=== PATIENT | female | born 1990 | race Caucasian/White ===

== ENCOUNTER 2022-06-13 06:33 | Inpatient (IN) | payer OTHER, SELFPAY ==
[2022-06-13] VITALS (54 sets, daily range): BP systolic 107–156; BP diastolic 57–102; PULSE 79–180; TEMP 36.6–37.6; O2SAT 80–100; BMI 29.3
[2022-06-13] MEDS: Lactated Ringers 1,000 ML 50 ML IV (06:45)
[2022-06-13 06:59] LABS: Absolute Lymphocyte Count 1.61 X10^3/uL (0.83-4.51); Absolute Neutrophil Count 8.2 X10^3/uL (2.0-7.7); Basophil# 0.06 X10^3/uL; Basophil% 0.5 % (0-1); Eosinophil# 0.11 X10^3/uL; Hematocrit 34.3 % (37-47); Hemoglobin 11.6 g/dL (12.0-15.0); Lymphocyte # 1.61 X10^3/ul (0.83-4.51); Lymphocyte % 14.5 % (19-41); Mean Corp Hgb Conc 33.8 g/dL (32-36); Mean Corpuscular Hgb 30.4 pg (27.0-32.0); Mean Platelet Vol. 10.5 fl (6.2-12.0); Monocyte# 1.07 X10^3/uL; Monocyte% 9.6 % (0-10); NRBC Flagged by Analyzer 0 % (0-5); Neutrophil # 8.16 X10^3/uL (2.7-7.7); Neutrophil % 73.6 % (47-70); Platelet Count 241 K/mm3 (150-450); RBC Distribution Width CV 13.5 % (11.6-14.6); RBC Distribution Width SD 44.3 fl (35.1-43.9); Red Blood Count 3.81 M/mm3 (4.2-5.4); White Blood Count 11.1 K/mm3 (4.4-11.0)
[2022-06-13 07:35] LABS: Bedside Glucose 104 mg/dL (74-106)
[2022-06-13] MEDS: Oxytocin 15 Units/NS 250ml 15 UNITS/250 ML IV.SOLN 2 UNITS IV (07:48)
--- NOTE | 2022-06-13 09:06 | HP.PCM.OB_ITS ---
HPI - General General Date of Admission: 06/13/22 Date of Service: 06/13/22 HPI Narrative DIEGO LAWRENCE, is a 31 F who presents with SROM. Maternal Data Information Final ABDIFATAH: 06/25/22 Gestational age: 38&2 PFSH [facility] Medical History (Updated 06/13/22 @ 09:[address] Quinten Layne MD) Anemia Gestational diabetes IBS (irritable bowel syndrome) Infertility Uterine anomaly Home Medications PNV 153-FA 400 mcg-om3 35 mg-dha 25 mg-epa 5 mg-fish oil chew tablet ( Gummies) 2 tab PO DAILY 06/13/22 [History Last Taken 06/13/22 05:00] famotidine 20 mg tablet (Pepcid) 20 mg PO DAILY acid reflux 06/13/22 [History Last Taken 06/12/22 20:00] ferrous sulfate 142 mg (45 mg iron) tablet,extended release (Slow Fe) 142 mg PO DAILY anemia 06/13/22 [History Last Taken 06/13/22 04:00] Allergy/AdvReac Type Severity Reaction Status Date / Time hydrocodone Allergy Intermediate Vomiting Verified 06/13/22 06:49 tree nut [tree nuts] Allergy Hives Verified 06/13/22 06:49 Social History Smoking Status: Never smoker History Elective abortions Hx Para 0 Spontaneous abortions Hx # Term Pregnancies Ectopic pregnancies Hx # Pregnancies Multiple births # of living children NST FHR Rate Baby A Baseline: 135 Variability:: Moderate Accelerations:: 15 x 15 Decelerations:: None Uterine Activity:: Irregular Vital Signs Vital Signs Vital Signs: 06/13/22 06:21 06/13/22 06:21 06/13/22 06:21 Temperature Temperature Source Temporal Pulse Rate 116 H Blood Pressure 130/78 H BP Systolic 130 BP Diastolic 78 Pulse Ox 06/13/22 06:21 06/13/22 07:20 06/13/22 07:20 Temperature 98.0 F Temperature Source Pulse Rate 95 Blood Pressure 132/81 H BP Systolic 132 BP Diastolic 81 Pulse Ox 06/13/22 07:25 06/13/22 07:25 06/13/22 08:57 Temperature 99.1 F Temperature Source Pulse Rate Blood Pressure 124/82 H BP Systolic 124 BP Diastolic 82 Pulse Ox 98 06/13/22 08:57 06/13/22 08:56 06/13/22 08:56 Temperature 98.5 F Temperature Source Temporal Pulse Rate 96 Blood Pressure BP Systolic BP Diastolic Pulse Ox Weight Weight: 160 lb 9.6 oz Body Mass Index (BMI) 29.3 Physical Exam Const alert and oriented x3 Chest inspection of chest normal GI soft to palpation, non-tender and non-distended Inspection: gravid external exam normal Narrative: /3 Labs Labs Labs: Blood Type A POSITIVE Antibody Screen NEGATIVE Hct 34.3 % (37-47) L Hgb 11.6 g/dL (12.0-15.0) L See [facility] H&P Assessment & Plan (1) SROM (spontaneous rupture of membranes): COMMENT: @ 38&2 (2) Gestational diabetes, diet controlled: (3) Anemia affecting : PLAN: Plan Admit to L&D Augment with pitocin GBS negative EFW - less thatn 4500g, patient with adequate pelvis Pain - epidural as desired Routine care
[2022-06-13 09:20] LABS: Bedside Glucose 98 mg/dL (74-106)
[2022-06-13] MEDS: LACTATED RINGERS 500 ML 999 ML IV ×2 (11:18→19:28)
[2022-06-13] MEDS: fentaNYL-bupivacaine (epidural) 100 ML BAG EPIDURAL (12:08)
[2022-06-13 12:50] LABS: Bedside Glucose 81 mg/dL (74-106)
[2022-06-13] MEDS: Lactated Ringers 1,000 ML 200 ML IV (16:01)
[2022-06-13 16:26] LABS: Bedside Glucose 81 mg/dL (74-106)
[2022-06-13] MEDS: Amnioinfusion- 0.9% NS 1,000 ML IV.SOLN. INTRA-UTER (16:30)
[2022-06-13 18:25] LABS: Bedside Glucose 79 mg/dL (74-106)
[2022-06-13] MEDS: Mag Hydrox/Al Hydrox/Simeth 30 ML UDC PO (19:10)
--- NOTE | 2022-06-13 19:54 | PN.OBGYN_ITS ---
Subjective Subjective Patient comfortable with epidural Objective Data Objective Data Vital Signs: Vital Signs Temp Pulse BP Pulse Ox 98.6 F 93 127/60 H 99 06/13/22 19:29 06/13/22 19:29 06/13/22 19:29 06/13/22 19:28 Weight: 160 lb 9.6 oz Body Mass Index (BMI) 29.3 Intake & Output: Intake and Output for Last 24 Hours 06/11/22 06/12/22 06/13/22 23:59 23:59 23:59 Intake Total 4358.70 / 4358.70 Output Total 2150 / 2150 Balance 2208.70 / 2208.70 Lab / Micro Data Result Diagrams: 06/13/22 06:45 Labs: Laboratory Results - last 24 hr 06/13/22 06:43: POC Glucose 104 06/13/22 06:45: WBC 11.1 H, RBC 3.81 L, Hgb 11.6 L, Hct 34.3 L, MCV 90.0, MCH 30.4, MCHC 33.8, RDW Std Deviation 44.3 H, RDW Coeff of Lissette 13.5, Plt Count 241, MPV 10.5, Immature Gran % (Auto) 0.800, Neut % (Auto) 73.6 H, Lymph % (Auto) 14.5 L, [place] % (Auto) 9.6, Eos % (Auto) 1.0, Baso % (Auto) 0.5, Absolute Neuts (auto) 8.2 H, Absolute Lymphs (auto) 1.61, Nucleated RBC % 0 06/13/22 07:05: Blood Type A POSITIVE, Antibody Screen NEGATIVE 06/13/22 08:02: POC Glucose 98 06/13/22 12:02: POC Glucose 81 06/13/22 15:57: POC Glucose 81 06/13/22 17:30: POC Glucose 79 Physical Exam Narrative: cvx - 6/80/-1 NST FHR Rate Baby A Baseline: 140 Variability:: Moderate Accelerations:: 15 x 15 Decelerations:: Late (occasional) Uterine Activity:: Q 2-3 minutes Assessment & Plan (1) SROM (spontaneous rupture of membranes): COMMENT: @ 38&2 PLAN: Plan Decrease pitocin to 4 and change patient's position to resolve late appearing decelerations. monitoring remains overall reassuring.
[2022-06-13 20:36] LABS: Bedside Glucose 86 mg/dL (74-106)
--- NOTE | 2022-06-13 21:20 | EX.PCM.OBRPT ---
Maternal Data Information Final ABDIFATAH: 06/25/22 Gestational age: 38&2 Vaginal Delivery Maternal Presentation Maternal Presentation: Spontaneous Rupture of Membranes Type of Induction: Pitocin Operative Information Date of Procedure: 06/13/22 Pre-Operative Diagnosis: (1) Spontaneous rupture of membranes (2) Gestational diabetes - diet controlled Post-Operative Diagnosis: Same Surgery / Procedure Performed: Spontaneous Vaginal Delivery Type of Anesthesia: Epidural Estimated Blood Loss: 400ml Findings Description of Procedure: Patient prepped & draped when C/C/+2. She pushed well to deliver the head. head gently guided to allow delivery of anterior and posterior shoulders. No excess traction placed on head. Body delivered and 3VC clamped & cut in delayed fashion. Placenta delivered with gentle traction and good uterine tone obtained. Presentation: JOHN Amniotic Membrane Rupture Type: Spontaneous Amniotic Fluid Description: Moderate meconium Placental Delivery Description: Expressed Placenta Disposition: [facility] Specimen(s) Removed: Placenta Cord Vessel Description: 3 Vessels Cord Entanglement: None A Gender: Male (1 minute): 8 (5 minute): 9 Delayed Cord Clamping: Yes Post Vaginal Delivery Medications Given After Delivery: IV Pitocin Episiotomy Description: None Laceration: 1st degree (perineal - repaired with 3-0 vicryl) Complication Complications: None
[2022-06-13 21:31] LABS: Bedside Glucose 85 mg/dL (74-106)
[2022-06-13 22:30] LABS: Bedside Glucose 105 mg/dL (74-106)
[2022-06-13 23:51] LABS: Bedside Glucose 114 mg/dL (74-106)
[2022-06-14] VITALS (27 sets, daily range): BP systolic 104–123; BP diastolic 56–77; PULSE 91–133; RESP 16–18; TEMP 36.7–37.2; O2SAT 97–98
[2022-06-14 06:15] LABS: Bedside Glucose 100 mg/dL (74-106)
--- NOTE | 2022-06-14 16:41 | PCM.PN.OB ---
Subjective Subjective Denies complaints Objective Data Objective Data Vital Signs: Vital Signs Temp Pulse Resp BP Pulse Ox O2 Del Method 98.2 F 94 16 114/74 98 Room Air 06/14/22 12:10 06/14/22 12:10 06/14/22 12:10 06/14/22 12:10 06/14/22 01:43 06/14/22 04:01 Oxygen Delivery Method Room Air Weight: 160 lb 9.6 oz Body Mass Index (BMI) 29.3 Intake & Output: Intake and Output for Last 24 Hours 06/12/22 06/13/22 06/14/22 23:59 23:59 23:59 Intake Total 4745.63 / 4745.63 644.37 / 644.37 Output Total 2150 / 2150 500 / 500 Balance 2595.63 / 2595.63 144.37 / 144.37 Lab / Micro Data Result Diagrams: 06/13/22 06:45 Labs: Laboratory Results - last 24 hr 06/13/22 17:30: POC Glucose 79 06/13/22 20:14: POC Glucose 86 06/13/22 21:11: POC Glucose 85 06/13/22 22:09: POC Glucose 105 06/13/22 23:30: POC Glucose 114 H 06/14/22 05:48: POC Glucose 100 Physical Exam Const alert, oriented x3 and no apparent distress HEENT normocephalic GI soft to palpation, non-tender and non-distended GI Narrative: fundus firm, mid & below umbilicus Extremity normal to inspection and no calf tenderness Assessment & Plan (1) Gestational diabetes, diet controlled: COMMENT: PPD#1 PLAN: Routine PP care FBS this am normal. Plan for PP DM screening.
[2022-06-15 02:00] VITALS: BP 104/67; PULSE 92; RESP 16; TEMP 35.9
[2022-06-15 08:18] VITALS: BP 110/68; PULSE 96; RESP 16; TEMP 36.7
--- NOTE | 2022-06-15 10:08 | DCINST_ITS ---
Discharge Instructions Diet Discharge Diet: No restrictions Activity Discharge Activity: May Shower May resume sexual activity in: 6 weeks Weight Bearing Status: Weight bearing as tolerated Dressing / Incision Call your doctor if you observe: Fever of 101 or Higher, Coldness, Increased Pain, Change in Color, Inability to urinate, Inability to have a bowel movement, Using more than 1 pad per hour, Shortness of breath, Dizziness, Fainting spells, Chest pain, Increased palpitations (irregular heartbeat), Calf discomfort and Uncontrolled pain Follow Up Care Please Follow Up With: Quinten Layne MD When: Follow up in 2 and 6 weeks for visits. Test Results: Test results from this visit will be discussed in further detail at your follow- up appointment, if applicable. Discharge Plan Admission Admit Date/Time: 06/13/22 06:33 Primary Reason for Your Visit: Vaginal delivery Attending Provider: Quinten Layne Primary Care Provider: Danielle Kirk Primary Discharge Orders/Prescriptions Prescriptions: New acetaminophen 500 mg Tablet 1,000 mg PO Q6H PRN PRN (Reason: Pain 1-10 Or Fever) Qty: 0 0RF ibuprofen 600 mg Tablet 600 mg PO Q6H PRN PRN (Reason: Pain Score 1-3) Qty: 0 0RF Continued famotidine [Pepcid] 20 mg Tablet 20 mg PO DAILY Slow Fe 142 mg (45 mg iron) Tablet Extended Release 142 mg PO DAILY Gummies 400 mcg-35 mg- 25 mg-5 mg Tablet,Chewable 2 tab PO DAILY Referrals / Follow Up: Care Physician,No Primary [Primary Care Provider] - Disposition Disposition (needs filled in before D/C Order can be placed): Home, Self Care
--- NOTE | 2022-06-15 10:10 | PCM.PN.OB ---
Subjective Subjective NO complaints Objective Data Objective Data Vital Signs: Vital Signs Temp Pulse Resp BP Pulse Ox O2 Del Method 98.1 F 96 16 110/68 98 Room Air 06/15/22 08:18 06/15/22 08:18 06/15/22 08:18 06/15/22 08:18 06/14/22 01:43 06/15/22 08:18 Oxygen Delivery Method Room Air Weight: 160 lb 9.6 oz Body Mass Index (BMI) 29.3 Intake & Output: Intake and Output for Last 24 Hours 06/13/22 06/14/22 06/15/22 23:59 23:59 23:59 Intake Total 4745.63 / 4745.63 644.37 / 644.37 Output Total 2150 / 2150 800 / 800 Balance 2595.63 / 2595.63 -155.63 / -155.63 Lab / Micro Data Result Diagrams: 06/13/22 06:45 Physical Exam Const alert, oriented x3 and no apparent distress HEENT normocephalic GI soft to palpation, non-tender and non-distended GI Narrative: fundus firm, mid & below umbilicus Extremity normal to inspection and no calf tenderness Assessment & Plan (1) Gestational diabetes, diet controlled: COMMENT: PPD#2 PLAN: D/c to home
== END 2022-06-15 11:00 | disposition home or self-care (01) | DRG 807 ==
LOC: WPOUT 06:35 → WP 07:21
PROVIDERS: Admitting Provider Advanced Practice Midwife; Visit Provider Obstetrics & Gynecology
DX: O24.420 Gestational diabetes mellitus in childbirth, diet controlled (principal); Z37.0 Single live birth; D64.9 Anemia, unspecified; O76 Abnormality in fetal heart rate and rhythm complicating labor and delivery; Z3A.38 38 weeks gestation of pregnancy; O99.02 Anemia complicating childbirth
CPT/HCPCS: 59025; 59050; 82962; 85025; 86850; 86900; 86901; 99221; J7030; J7120; G0378

== ENCOUNTER 2024-06-26 10:01 | Emergency (ER) | payer OTHER, SELFPAY ==
[2024-06-26 10:02] VITALS: BP 141/83; PULSE 78; RESP 15; TEMP 36.4; O2SAT 99; BMI 24.7
[2024-06-26 10:03] VITALS: BP 141/83; PULSE 85; RESP 16; TEMP 36.4; O2SAT 100
--- NOTE | 2024-06-26 10:04 | US_ITS ---
STUDY: ABDOMINAL ULTRASOUND - RIGHT UPPER QUADRANT REASON FOR VISIT: Female, 34 years old PAIN TECHNIQUE: Ultrasound evaluation of the right upper quadrant was performed with real-time and static garcia-scale imaging. TECHNICAL QUALITY: Adequate. COMPARISON: None. FINDINGS: Liver: The liver measures 13.6 cm. There is normal echogenicity of the liver. The bile ducts are within normal limits. There is hepatic color flow. The direction of portal flow is hepatopetal. There is no demonstrated mass lesion. Gallbladder: Normal distended gallbladder. The gallbladder wall measures 1.3 mm. There is a negative sonographic Rockwell''s sign. There is no pericholecystic fluid. There are no gallstones. Common Bile Duct (C.B.D.): The common bile duct measures 7.1 mm. Pancreas: Normal size of the head, body and tail of the pancreas. There is normal echogenicity of the pancreas. There is no demonstrated pancreatic mass or cyst. The pancreatic duct is not dilated. Right Kidney: Normal size of the right kidney. The right kidney measures 10.7 x 6.6 x 4.6 cm. Normal renal cortex. The right cortex measures 1.1 cm. There is no demonstrated renal mass or cyst. There is no right hydronephrosis. US/Gallbladder IMPRESSION: Normal right upper quadrant ultrasound examination. Electronically Signed: Shyam Nelson MD at 12:17 EST ,
--- NOTE | 2024-06-26 10:11 | EDS_ITS ---
HPI History of Present Illness Chief Complaint: Abd Pain Narrative Narrative: Chief complaint and HPI: Right upper quadrant abdominal pain. 34-year-old female with past medical history of episodic acid reflux and IBS presents for evaluation of right upper quadrant abdominal pain. Patient states on Thursday she ate pizza and then Thursday developed right upper quadrant abdominal pain. Pain has been consistent and mildly progressing. Denies any fever, chills, shortness of breath, chest pain, dysuria, vomiting. Endorses mild nausea as well as had diarrhea on Thursday that is since resolved. Denies any constipation. No abdominal surgeries. Scheduled to have uterine polyps removed this week. Denies any daily alcohol abuse. Review of systems: See HPI Medications: As listed on the chart Allergies: As listed on the chart PFSH: Per chart Vital signs: As listed on the chart. Reviewed. Physical exam: Gen: A&O x3, NAD Head: Normocephalic, atraumatic Eyes: No sclera icterus, conjunctiva clear ENT: Moist mucous membranes Neck: Trachea midline, No JVD CV: RRR, no murmurs, no peripheral edema Resp: Lungs CTA BL, no w/r/c GI: Abd soft, non-distended, tender to palpation of the right upper quadrant, negative Rockwell sign, no rebound or rigidity Musc: Full ROM, no deformity Skin: Warm, dry Neuro: Alert, oriented, grossly intact, sensation intact Psych: Cooperative, appropriate mood and affect [facility] Medical History Anemia affecting Gestational diabetes, diet controlled SROM (spontaneous rupture of membranes) IBS (irritable bowel syndrome) Anemia Gestational diabetes Uterine anomaly Infertility Home Medications ?Medication ?Instructions ?Recorded ?Last Taken ?Type PNV 153-FA 400 mcg-om3 35 mg-dha 2 tab PO DAILY 06/13/22 06/13/22 05:00 History 25 mg-epa 5 mg-fish oil chew tablet ( Gummies) famotidine 20 mg tablet (Pepcid) 20 mg PO DAILY acid reflux 06/13/22 06/12/22 20:00 History ferrous sulfate 142 mg (45 mg 142 mg PO DAILY anemia 06/13/22 06/13/22 04:00 History iron) tablet,extended release (Slow Fe) acetaminophen 500 mg tablet 1,000 mg (2 x 500 mg) PO Q6H PRN 06/15/22 Unknown Rx PRN Pain 1-10 Or Fever #0 tabs ibuprofen 600 mg tablet 600 mg PO Q6H PRN PRN Pain Score 06/15/22 Unknown Rx 1-3 #0 tabs Allergy/AdvReac Type Severity Reaction Status Date / Time hydrocodone Allergy Intermediate Vomiting Verified 06/26/24 10:03 tree nut (tree nuts) Allergy Hives Verified 06/26/24 10:03 Social History Smoking Status: Never smoker EXAM Physical Exam Const Vital Signs: 06/26/24 10:02 06/26/24 10:03 06/26/24 12:01 Temperature 97.6 F L 97.6 F L Temperature Source Temporal Temporal Pulse Rate 78 85 87 Respiratory Rate 15 16 16 Blood Pressure 141/83 H 141/83 H 136/81 H Blood Pressure Mean 102 102 99 Pulse Ox 99 100 99 Oxygen Delivery Method Room Air Room Air MDM MDM MDM Narrative Medical decision making narrative: 34-year-old female with past medical history of episodic acid reflux and IBS presents for evaluation of right upper quadrant abdominal pain. In 2019 patient states that she had an unremarkable EGD. On chart review, I am unable to find these records. Differential diagnosis includes but is not limited to biliary colic secondary to cholelithiasis, cholecystitis, choledocholithiasis, pancreatitis, GERD, PUD. Morphine, Zofran, Pepcid ordered for symptoms. Laboratory workup ordered including ultrasound of the gallbladder. CBC without leukocytosis or anemia. BMP unremarkable without AIDEN or significant electrolyte abnormality. Hepatic panel unremarkable without transaminitis or hyperbilirubinemia. Lipase unremarkable. Serum negative. Ultrasound of the gallbladder with no acute process. Patient has no gallstones. At this point in time, no clear etiology for patient's pain. On reexamination patient states she feels like it may be her lower rib. Her right lower rib is tender to palpation. Her pain may be musculoskeletal in nature. She states that she does often lift her son. Will get a chest x-ray to assess for rib fracture or lung abnormality. Patient not endorsing any chest pain or shortness of breath. X-ray of the chest as well as right ribs negative for fracture, pneumothorax, pneumonia, effusion, cardiomegaly. This was personally reviewed by me. Again, no clear etiology to explain patient's pain. Tylenol as needed for pain as patient is not to have Motrin given her upcoming surgery. Follow-up with PCP. She confirmed understand the plan. Return precautions explained. Patient stable to discharge home. Impression: 1. Right upper quadrant abdominal Lab Data Labs: Laboratory Results - last 24 hr 06/26/24 10:18 WBC 5.3 RBC 4.54 Hgb 12.2 Hct 37.6 MCV 82.8 MCH 26.9 L MCHC 32.4 RDW Std Deviation 42.7 RDW Coeff of Lissette 14.1 Plt Count 326 MPV 9.9 Immature Gran % (Auto) 0.400 Neut % (Auto) 58.5 Lymph % (Auto) 29.5 [place] % (Auto) 8.6 Eos % (Auto) 1.9 Baso % (Auto) 1.1 H Absolute Neuts (auto) 3.1 Absolute Lymphs (auto) 1.55 Nucleated RBC % 0 Sodium 141 Potassium 3.7 Chloride 108 H Carbon Dioxide 28.0 Anion Gap 5 BUN 10 Creatinine 0.73 Estim Creat Clear Calc 95.28 Est GFR (MDRD) Af Amer 119 Est GFR (MDRD) Non-Af 99 BUN/Creatinine Ratio 13.8 Glucose 98 Calcium 9.2 Total Bilirubin 0.60 Direct Bilirubin 0.16 AST 17 ALT 26 Alkaline Phosphatase 68 Total Protein 8.2 Albumin 3.9 Globulin 4.3 H Lipase 34 Serum , Qual NEGATIVE Radiography Diagnostic Testing: Clinical Impression(s) from Imaging Studies Gallbladder Ultrasound 06/26/24 10:04 IMPRESSION: Normal right upper quadrant ultrasound examination. Electronically Signed: Shyam Nelson MD at 12:17 EST Reading Location ID and State: [facility] / [place] , Service support , Ribs w/Chest X-Ray 06/26/24 12:55 IMPRESSION: Negative chest and right ribs series. Electronically Signed: Shyma Nelson MD at 13:13 EST , Discharge Plan Triage Chief Complaint: Abd Pain ED Provider: Darrell Sibley Dx/Rx/DC Orders Instructions: ED Abdominal Pain Unkn Cause Fem Prescriptions: No Action famotidine [Pepcid] 20 mg Tablet 20 mg PO DAILY Slow Fe 142 mg (45 mg iron) Tablet Extended Release 142 mg PO DAILY Gummies 400 mcg-35 mg- 25 mg-5 mg Tablet,Chewable 2 tab PO DAILY acetaminophen 500 mg Tablet 1,000 mg PO Q6H PRN PRN (Reason: Pain 1-10 Or Fever) Qty: 0 0RF ibuprofen 600 mg Tablet 600 mg PO Q6H PRN PRN (Reason: Pain Score 1-3) Qty: 0 0RF Primary Care Provider: Elsa Ramos Referrals: Bernardo Curtis MD [Med Staff - Active Staff] - 3-5 Days Care Physician,No Primary [Non-Staff] - 3-5 Days Activity Restrictions/Additional Instructions: Follow-up with your primary care physician. Return back to the ED if symptoms change or worsen. Tylenol as needed for pain as you cannot have ibuprofen for your upcoming surgery. Print Language: British Disposition Disposition: Home, Self Care Discharge Date/Time: 06/26/24 14:30
[2024-06-26 10:40] LABS: Absolute Lymphocyte Count 1.55 X10^3/uL (0.83-4.51); Absolute Neutrophil Count 3.1 X10^3/uL (2.0-7.7); Basophil# 0.06 X10^3/uL; Basophil% 1.1 % (0-1); Eosinophils% 1.9 % (0-5); Hematocrit 37.6 % (37-47); Hemoglobin 12.2 g/dL (12.0-15.0); Lymphocyte # 1.55 X10^3/ul (0.83-4.51); Lymphocyte % 29.5 % (19-41); Mean Corp Hgb Conc 32.4 g/dL (32-36); Mean Corpuscular Hgb 26.9 pg (27.0-32.0); Mean Corpuscular Volume 82.8 fL (81-99); Mean Platelet Vol. 9.9 fl (6.2-12.0); Monocyte# 0.45 X10^3/uL; Monocyte% 8.6 % (0-10); NRBC Flagged by Analyzer 0 % (0-5); Neutrophil # 3.08 X10^3/uL (2.7-7.7); Neutrophil % 58.5 % (47-70); Platelet Count 326 K/mm3 (150-450); RBC Distribution Width CV 14.1 % (11.6-14.6); RBC Distribution Width SD 42.7 fl (35.1-43.9); Red Blood Count 4.54 M/mm3 (4.2-5.4); White Blood Count 5.3 K/mm3 (4.4-11.0)
[2024-06-26 10:44] LABS: Internal QC Validated? YES +Cl - CLEAR BKGD; Pregnancy, Serum, hCG Quali. NEGATIVE Negative
[2024-06-26] MEDS: Ondansetron 4 MG/2 ML Vial IV (10:51)
[2024-06-26] MEDS: Morphine 4 MG/ML Syringe IV (10:51)
[2024-06-26] MEDS: Famotidine 200 MG/20 ML MDV 20 MG in 0.9% Normal Saline (Pres. free 8 ML 300 MG IV (10:51)
[2024-06-26 10:54] LABS: AST(SGOT) 17 U/L (15-37); Alanine Aminotransfer ALT/SGPT 26 U/L (13-56); Albumin, Serum 3.9 g/dL (3.2-5.0); Alkaline Phosphatase 68 U/L (45-117); Anion Gap 5 (5-15); BUN 10 mg/dL (7-18); BUN/Creat Ratio 13.8 RATIO (10-20); Bilirubin, Direct 0.16 mg/dL (0.00-0.30); Calcium,Total 9.2 mg/dL (8.5-10.1); Chloride 108 mmol/L (98-107); Creatinine, Serum 0.73 mg/dL (0.55-1.02); EST Glomerular Filtration Rate 99 mL/min (>60); Est Glom Filt Rate - Afr Amer 119 mL/min (>60); Estimated Creatinine Clearance 95.28 ml/min; Globulin 4.3 g/dL (2.2-4.2); Glucose 98 mg/dL (74-106); Lipase 34 U/L (13-75); Potassium 3.7 mmol/L (3.5-5.1); Protein, Total 8.2 g/dL (6.4-8.2); Sodium Level 141 mmol/L (136-145)
[2024-06-26 12:01] VITALS: BP 136/81; PULSE 87; RESP 16; O2SAT 99
--- NOTE | 2024-06-26 12:55 | RAD_ITS ---
EXAM: XR RIGHT RIBS AND AP CHEST, 3 OR MORE VIEWS CLINICAL INDICATION: Pain TECHNIQUE: Frontal and oblique views of the right ribs and frontal view of the chest. COMPARISON: No relevant prior studies available. FINDINGS: LUNGS AND PLEURAL SPACES: Unremarkable. No consolidation or edema. No pneumothorax. No effusion. HEART: Unremarkable. Cardiac silhouette not enlarged. MEDIASTINUM: Central airways and mediastinal contour are unremarkable. BONES/JOINTS: Unremarkable. No evidence of displaced rib fractures. RAD/Ribs Uni Min 3V w/PA Chest IMPRESSION: Negative chest and right ribs series. Electronically Signed: Shyam Nelson MD at 13:13 EST ,
== END 2024-06-26 14:30 | disposition home or self-care (01) ==
PROVIDERS: Emergency Provider Surgery; Visit Provider Surgery
DX: R10.11 Right upper quadrant pain (principal); R19.7 Diarrhea, unspecified; R07.89 Other chest pain; K21.9 Gastro-esophageal reflux disease without esophagitis
CPT/HCPCS: 71101; 76705; 80048; 80076; 83690; 84703; 85025; 96374; 96375; 99283; A4216; J2405

== ENCOUNTER 2025-05-05 08:20 | Outpatient (CLI) | payer OTHER, SELFPAY ==
[2025-05-05 08:38] VITALS: BMI 29.2
--- NOTE | 2025-05-05 08:47 | OB.TRI.HP_ITS ---
HPI - General HPI Narrative DIEGO LAWRENCE, is a 34 F who presents to triage with brown liquid seen after wiping and continuous leaking of fluid. She denies any vaginal bleeding, cramping or contractions. Positive movements. PFSH [facility] Medical History (Updated 05/05/25 @ 08:59 by Leah Salomon CNM) Anemia affecting Gestational diabetes, diet controlled SROM (spontaneous rupture of membranes) IBS (irritable bowel syndrome) Anemia Gestational diabetes Uterine anomaly Infertility Home Medications ?Medication ?Instructions ?Recorded ?Last Taken ?Type PNV 153-FA 400 mcg-om3 35 mg-dha 2 tab PO DAILY pregna ncy 06/13/22 06/13/22 05:00 History 25 mg-epa 5 mg-fish oil chew tablet ( Gummies) ferrous sulfate 142 mg (45 mg 142 mg PO DAILY anemia 0 06/13/22 06/13/22 04:00 History iron) tablet,extended release (Slow Fe) acetaminophen 500 mg tablet 1,000 mg (2 x 500 mg) PO Q 6H PRN 06/15/22 Unknown Rx PRN Pain 1-10 Or Fever #0 tabs aspirin 81 mg capsule 81 mg PO DAILY 05/05/25 Unkn own History omeprazole magnesium 20 mg 20 mg PO DAILY 05/05/25 Unk nown History tablet,delayed release (Prilosec OTC) Allergy/AdvReac Type Severity Reaction Status Date / Time hydrocodone Allergy Intermediate Vomiting Verified 05/05/25 09:13 tree nut (tree nuts) Allergy Hives Verified 05/05/25 09:13 Social History Smoking Status: Never smoker History Elective abortions Hx Para 0 Spontaneous abortions Hx # Term Pregnancies Ectopic pregnancies Hx # Pregnancies Multiple births # of living children Assessment & Plan (1) Fluid loss: (2) 28 weeks gestation of : (3) Abnormal vaginal fluids: (4) Urinary frequency: PLAN: Plan SSE completed- Small amount of clear/caldera colored fluid pooling FFN collected ROM- plus collected- NEGATIVE Visually cervix is closed, small amount of brown discharge coming from os BPP 01/[address] Silva involved with plan of care
[2025-05-05 09:07] VITALS: BP 116/61; PULSE 104; RESP 16; TEMP 37.4; O2SAT 97
[2025-05-05 09:12] LABS: Color, Urine Yellow (Yellow); Glucose, Dipstick Normal (Normal); Ketone-Dipstick Negative (Negative); Leukocyte Esterase-Dipstick Negative /ul (Negative); Nitrite-Dipstick Negative (Negative); Occult Blood-Urine 10 /ul (Negative); Protein-Dipstick Negative (Negative); Specific Gravity, Urine 1.010 (1.002-1.030); Urine Bilirubin Dipstick Negative (Negative)
[2025-05-05 09:24] LABS: ROM Internal Control Test YES-OK TO RESULT pt. (Internal QC); ROM Patient Test Negative (Negative); Record Kit Lot#, ROM+ K3607
[2025-05-05 09:34] LABS: Fetal Fibronectin POSITIVE; Record Kit Lot#, fFN L4921
--- NOTE | 2025-05-05 09:40 | US_ITS ---
PROCEDURE: OB BIOPHYSICAL PROF W/O NST 05/05/2025 REASON FOR EXAM: POSITIVE FFN TECHNIQUE: Procedure Code: USBIOWO Modality: US Procedure: OB BIOPHYSICAL PROF W/O NST COMPARISON: None. FINDINGS FETUS: There is a single living intrauterine gestation. POSITION: position is breech. HEART RATE: The heart rate is 158 bpm and regular. ANATOMIC SURVEY: Detailed anatomy survey not performed. The visualized anatomy is unremarkable. CERVIX: Not well visualized. PLACENTA: The placenta is anterior fundal. Grade 1. No demonstrated evidence of previa or abruption. BREATHING MOVEMENTS: Score 2/2. BODY MOVEMENTS: Score 2/2. TONE: Score 2/2. QUALITATIVE AMNIOTIC FLUID VOLUME: 13.3 cm, largest pocket 10.0 cm Score 2/2. US/OB Biophysical Prof W/O NST IMPRESSION: 1. Single live intrauterine gestation. 2. Normal biophysical profile, 01/06. Reading Location: [id number]
--- NOTE | 2025-05-05 09:40 | US_ITS ---
PROCEDURE: OB LIMITED WITH BIOMETRICS 05/05/2025 REASON FOR EXAM: POSITIVE FFN TEST TECHNIQUE: Procedure Code: [id number] Modality: US Procedure: OB LIMITED WITH BIOMETRICS COMPARISON: None. FINDINGS FETUS: There is a single living intrauterine gestation. POSITION: position is breech. HEART RATE: The heart rate is 162 BPM and regular. BIOMETRICS: Based on composite biometry, the composite estimated gestational age by ultrasound is 30 weeks 1 day. LMP gestational age: 28 weeks 5 days LMP ABDIFATAH: July 23, 2025 Sonographic gestational age: 30 weeks 1 day Sonographic ABDIFATAH: July 13, 2025 ANATOMIC SURVEY: Detailed anatomy survey not performed. PLACENTA: The placenta is anterior fundal. Grade 1. No demonstrated evidence of previa or abruption. AMNIOTIC FLUID: Within normal limits. [place] measuring 14.2 cm. Max vertical pocket (MVP) measuring 6.5 cm. CERVIX: Long and closed measuring 3.7 cm in length. Unremarkable as visualized. SONOGRAPHIC MEASUREMENTS: Bi-Parietal Diameter (BPD): 7.8 cm; 31 weeks 2 days Head Circumference (HC): 28.0 cm; 30 weeks 4 days Abdominal Circumference (AC): 25.8 cm; 30 weeks 0 days Femur Length (FL): 5.4 cm; 28 weeks 4 days Estimated weight: 1455 grams +/- 218 grams (3 lb, 3 oz) EFW percentile: 76 % MATERNAL OVARIES: Not visualized. US/OB Limited With Biometrics IMPRESSION: 1. Single living intrauterine gestation estimated at 30 weeks 1 day by today's ultrasound criteria. Size equals dates. 2. Breech position. 3. No other abnormal findings. Reading Location: [id number]
== END 2025-05-05 12:35 | disposition home or self-care (01) ==
LOC: WPOUT 08:34 → WP 08:37
PROVIDERS: Referring Provider Advanced Practice Midwife; Visit Provider Advanced Practice Midwife
DX: O99.891 Other specified diseases and conditions complicating pregnancy (principal); Z79.82 Long term (current) use of aspirin; Z79.899 Other long term (current) drug therapy; R35.0 Frequency of micturition; Z3A.28 28 weeks gestation of pregnancy
CPT/HCPCS: 59025; 59050; 76816; 76819; 81002; 81515; 82731; 84112; 87086; 99221; G0378